=== PATIENT | female | born 1950 | race Caucasian/White ===

== ENCOUNTER → 2017-11-17 | Outpatient (CLI) | payer BC ==
[~2017-11-17] MED LIST: CALC-656 PO; CICLESONIDE INH; E400C PO; LEVO750T6 PO; MULT-608 PO; NO HOME MEDICATIONS; OMEG1CAP51 PO; OXYC1TAB87 PO
--- NOTE | 2017-11-17 17:09 | Diagnostic Imaging Report ---
INDICATION: Nephrolithiasis KUB at 5:04 PM FINDINGS: There are small calculus fragments projecting over the upper pole of the left kidney. There is a small calculus projecting over the right renal pelvis. This calculus measures 2 mm in diameter. There is calcification projecting over the right proximal ureter measuring 8 mm in length that could be a proximal ureteral calculus. IMPRESSION: Suspected bilateral renal calculi and possible right proximal ureteral calculus. Dictated by: Dictated on workstation # [id number]
== END ==
LOC: RAD 16:26
PROVIDERS: ATTEND Urology
DX: N20.0 Calculus of kidney (principal)
CPT/HCPCS: 74018

== ENCOUNTER → 2017-12-12 | Outpatient (CLI) | payer BC ==
[~2017-12-12] MED LIST changes: +HYDR-3875 PO; +NITR-65 PO; +TAMS0.4C98 PO
--- NOTE | 2017-12-12 16:06 | Diagnostic Imaging Report ---
EXAMINATION: Abdomen at 01:01 p.m. INDICATION: Post ESWL. FINDINGS: A single supine view of the abdomen and pelvis was obtained. As noted on the exam performed on 11/30/2017, there are calcifications overlying each kidney. Those calcifications are again evident and do not seem to have changed significantly. The calcifications overlying the pelvis seen previously are again evident and no different. There is gas in both the large and small bowel in a nonspecific fashion. There is also a fair amount of fecal material throughout the colon. These findings are also similar to the prior exam. There is no evidence for bowel obstruction. There is no mass or organomegaly noted. The osseous structures are intact. IMPRESSION: 1. The calcifications overlying the kidneys seen on the prior study do not appear to have changed significantly. The pelvic calcifications are also no different. 2. There is no acute abnormality identified. Dictated by: Dictated on workstation # [id number]
== END ==
LOC: RAD 12:29
PROVIDERS: ATTEND Urology
DX: R19.07 Generalized intra-abdominal and pelvic swelling, mass and lump (principal); N20.1 Calculus of ureter
CPT/HCPCS: 74018

== ENCOUNTER → 2017-12-12 | Outpatient (CLI) | payer BC | LOC: PREOP 05:51 | PROVIDERS: ATTEND Urology | DX: Z01.818 Encounter for other preprocedural examination (principal) ==

== ENCOUNTER → 2022-05-12 | Outpatient (CLI) | payer BC ==
[~2022-05-12] MED LIST changes: -TAMS0.4C98 PO; +TMSL.4C PO
== END ==
LOC: LABNPT 14:53
PROVIDERS: ATTEND Registered Nurse Emergency
DX: Z20.822 Contact with and (suspected) exposure to COVID-19 (principal)
CPT/HCPCS: 87636

== ENCOUNTER → 2022-10-12 | Outpatient (CLI) | payer MEDICARE ==
--- NOTE | 2022-10-12 17:04 | Diagnostic Imaging Report ---
INDICATION: CHRONIC COUGH. COMPARISON: 01/29/2019. FINDINGS: Frontal and lateral views of the chest demonstrate normal heart size and pulmonary vascularity. Evaluation of the lung dubose suggests small micronodular opacities projecting over the lateral right upper lung field. These measure 3 to 6 mm in diameter and may be calcified. Otherwise, the lungs are clear. There is no large effusion or pneumothorax. Osseous structures show no gross acute abnormalities. IMPRESSION: 1. No evidence of failure or focal infiltrate. 2. Punctate micronodular opacities of the lateral margins of the right upper lung. Again, these may be calcified and may be on the basis of benign granuloma. Further characterization with dedicated CT of the chest, however, is advised. Dictated by: Dictated on workstation # [id number]
== END ==
LOC: RAD FS 11:20
PROVIDERS: ATTEND Family Medicine
DX: Z00.00 Encounter for general adult medical examination without abnormal findings (principal); Z12.31 Encounter for screening mammogram for malignant neoplasm of breast; I83.93 Asymptomatic varicose veins of bilateral lower extremities; R05.3 Chronic cough; M79.606 Pain in leg, unspecified
CPT/HCPCS: 71046

== ENCOUNTER → 2022-10-29 | Outpatient (CLI) | payer MEDICARE ==
[~2022-10-29] MED LIST changes: +CATHETER FLUSH 10 ML SYR IV PRN; +HOLD METFORMIN - RECEIVED CONTRAST 20 ML VIAL IV SCH; +IOHEXOL 350 MG/ML 100 ML (OMNIPAQUE 350) VIAL IV ONE; +NS 100 ML (IVPB) BAG IV ONE
--- NOTE | 2022-10-29 12:27 | Diagnostic Imaging Report ---
PROCEDURE: CT chest with contrast only. TECHNIQUE: Multiple contiguous axial images were obtained through the chest after administration of intravenous contrast. Auto Exposure Controls were utilized during the CT exam to meet ALARA standards for radiation dose reduction. INDICATION: Chronic cough, peripheral nodular densities right upper lobe laterally indeterminate at radiograph, CT performed as further evaluation. FINDINGS: Symmetrical hyperexpansion and air trapping in the lungs present. Some biapical pleural-parenchymal scarring, some bronchiectasis and some chronic airway thickening and streaky opacities with volume loss in the right middle lobe and lingular segment of the left upper lobe anteriorly, likely reflective of an element of chronic aspiration. In addition there are some patchy infiltrates in the lower lobes posteriorly which may be on the same basis as well given the somewhat tree-in-bud morphology. No pneumothorax. There is simple appearing anterior mediastinal cyst at the midline showing no soft tissue or enhancing component measuring 1.7 cm diameter. No axillary, hilar or mediastinal lymphadenopathy. There are calcified lymph nodes in the elizabeth and mediastinum on the benign granulomatous basis as well as several scattered pulmonary parenchymal calcified granulomata. No suspicious lung mass. No effusion or pneumothorax. Visible upper abdomen shows a nonobstructing right renal calculus and a contracted gallbladder with few hepatic cysts. IMPRESSION: Chronic air trapping in the lungs with some chronic bronchiectasis and dependent lower lobe as well as right middle and lingular segmental features suggestive of sequelae of aspiration, correlate clinically. Benign calcified granulomatous disease and a benign anterior mediastinal cyst. No suspicious steve mass. No dominant lung lesion. Right renal calculus and hepatic cysts noted. Dictated by: Dictated on workstation # [id number]
== END ==
LOC: RAD FS 10:09
PROVIDERS: ATTEND Family Medicine
DX: J47.9 Bronchiectasis, uncomplicated (principal); J98.4 Other disorders of lung
CPT/HCPCS: 71260; Q9967